=== PATIENT | male | born 1985 | race Caucasian/White ===

== ENCOUNTER 2018-02-18 22:39 | Inpatient (IN) | payer MEDICAID ==
[~2018-02-18] VITALS: Ht 175.3 cm; Wt 97.4 kg
[~2018-02-18 22:39] MED LIST: AMBIEN 5 MG TABL5 M1 PO; CIPROFLOXACIN500 M1 PO; NOHOMEMEDICATIONS; PERCOCET 5-3251 EACH PO; PRAZOSIN 1 MG CA1 M1 PO; ZYPREXA20 MG PO
[2018-02-18 22:43] VITALS: BP 129/79
[2018-02-18 22:56] LABS: URINE BILIRUBIN NEGATIVE (Negative); URINE BLOOD TRACE (Negative); URINE CLARITY CLEAR; URINE COLOR STRAW; URINE GLUCOSE-RANDOM NEGATIVE (Negative); URINE KETONES NEGATIVE (Negative); URINE LEUKOCYTES-REFLEX NEGATIVE (Negative); URINE NITRITE-REFLEX NEGATIVE (Negative); URINE PROTEIN NEGATIVE (Negative); URINE SPECIFIC GRAVITY <= 1.005 (1.005-1.030); URINE UROBILINOGEN 0.2 E.U./dl (0.2-1.0)
[2018-02-18 23:08] LABS: HEMATOCRIT 40.7 % (42.0-52.0); HEMOGLOBIN 14.1 gm/dL (14.0-18.0); MCHC 34.8 g/dL (28.0-37.0); MCV 83.4 fL (80.0-100.0); MPV 8.1 fl. (7.2-11.1); NUCLEATED RBCS 0 /100WBC; PLATELET COUNT* 257 thou/uL (150-400); RBC 4.88 mil/uL (4.50-6.00); RDW-CV 13.4 % (10.5-14.5); WBC 20.1 thou/uL (4.0-11.0)
[2018-02-18 23:30] LABS: CALCIUM 8.7 mg/dL (8.5-10.1); CREATININE 1.1 mg/dL (0.6-1.3)
[2018-02-18 23:32] LABS: ALBUMIN 3.8 g/dL (3.4-5.0); POTASSIUM 2.8 mmol/L (3.5-5.1); TOTAL BILIRUBIN 2.9 mg/dL (<0.1-1.0); TOTAL PROTEIN 7.6 g/dL (6.4-8.2)
[2018-02-18 23:40] LABS: AMP/METHAMP POSITIVE (Negative); BARBITURATES Negative (Negative); BENZODIAZEPINES Negative (Negative); COCAINE Negative (Negative); METHADONE Negative (Negative); OPIATES Negative (Negative); PCP Negative (Negative); THC Negative (Negative)
[2018-02-18 23:54] LABS: ALCOHOL < 10 mg/dL (<10); SALICYLATE < 2.8 mg/dL (2.8-20.0)
[2018-02-18 23:56] LABS: ACETAMINOPHEN < 2 ug/mL (10-30)
[2018-02-19 01:01] LABS: ABSOLUTE MONOCYTES 1.6 thou/uL (0.0-1.2); ABSOLUTE NEUTROPHILS 15.5 thou/uL (1.6-8.1); PLATELET ESTIMATE ADEQUATE
[2018-02-19 02:45] VITALS: BP 141/87
[2018-02-19 02:53] VITALS: BP 141/87
[2018-02-19 05:59] LABS: HEMATOCRIT 40.2 % (42.0-52.0); HEMOGLOBIN 13.8 gm/dL (14.0-18.0); MCH 28.7 pg (26.0-34.0); MCHC 34.3 g/dL (28.0-37.0); MCV 83.5 fL (80.0-100.0); MPV 8.2 fl. (7.2-11.1); RBC 4.81 mil/uL (4.50-6.00); RDW-CV 13.4 % (10.5-14.5); WBC 14.8 thou/uL (4.0-11.0)
[2018-02-19 06:15] LABS: ALBUMIN 3.2 g/dL (3.4-5.0); CALCIUM 8.3 mg/dL (8.5-10.1); TOTAL BILIRUBIN 2.4 mg/dL (<0.1-1.0); TOTAL PROTEIN 6.9 g/dL (6.4-8.2)
[2018-02-19 07:30] VITALS: BP 116/84
[2018-02-19 11:30] VITALS: BP 106/78
[2018-02-19 16:00] VITALS: BP 116/85
[2018-02-19 20:00] VITALS: BP 102/59
[2018-02-20] VITALS: BP 108/70
[2018-02-20 04:00] VITALS: BP 113/62
[2018-02-20 04:56] LABS: ABSOLUTE EOSINOPHILS 0.1 thou/uL (0.0-0.7); ABSOLUTE LYMPHOCYTES 3.2 thou/uL (0.8-5.3); ABSOLUTE MONOCYTES 0.8 thou/uL (0.0-1.2); ABSOLUTE NEUTROPHILS 5.7 thou/uL (1.6-8.1); BASOPHILS 0.4 %; EOSINOPHILS 0.9 %; HEMATOCRIT 37.2 % (42.0-52.0); HEMOGLOBIN 12.8 gm/dL (14.0-18.0); LYMPHOCYTES 32.3 %; MCH 29.3 pg (26.0-34.0); MCHC 34.5 g/dL (28.0-37.0); MCV 84.9 fL (80.0-100.0); MONOCYTES 7.7 %; MPV 8.6 fl. (7.2-11.1); NUCLEATED RBCS 0 /100WBC; PLATELET COUNT* 243 thou/uL (150-400); POLYS 58.7 %; RBC 4.38 mil/uL (4.50-6.00); RDW-CV 13.6 % (10.5-14.5); WBC 9.8 thou/uL (4.0-11.0)
[2018-02-20 05:22] LABS: CREATININE 0.9 mg/dL (0.6-1.3); POTASSIUM 3.7 mmol/L (3.5-5.1)
[2018-02-20 07:44] VITALS: BP 105/68
--- NOTE | 2018-02-20 15:50 | EKG ---
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
[2018-02-20 16:37] VITALS: BP 118/73
[2018-02-21 04:04] VITALS: BP 91/56
[2018-02-21 05:20] LABS: ABSOLUTE BASOPHILS 0.1 thou/uL (0.0-0.2); ABSOLUTE EOSINOPHILS 0.1 thou/uL (0.0-0.7); ABSOLUTE LYMPHOCYTES 3.4 thou/uL (0.8-5.3); ABSOLUTE MONOCYTES 0.8 thou/uL (0.0-1.2); ABSOLUTE NEUTROPHILS 5.4 thou/uL (1.6-8.1); BASOPHILS 0.6 %; EOSINOPHILS 1.3 %; HEMATOCRIT 39.3 % (42.0-52.0); HEMOGLOBIN 13.4 gm/dL (14.0-18.0); MCH 28.9 pg (26.0-34.0); MCV 85.1 fL (80.0-100.0); MPV 8.5 fl. (7.2-11.1); NUCLEATED RBCS 0 /100WBC; PLATELET COUNT* 270 thou/uL (150-400); POLYS 55.1 %; RBC 4.62 mil/uL (4.50-6.00); RDW-CV 13.3 % (10.5-14.5); WBC 9.8 thou/uL (4.0-11.0)
[2018-02-21 06:04] LABS: ALBUMIN 2.9 g/dL (3.4-5.0); CALCIUM 8.6 mg/dL (8.5-10.1); CREATININE 0.9 mg/dL (0.6-1.3); POTASSIUM 3.6 mmol/L (3.5-5.1); TOTAL BILIRUBIN 0.5 mg/dL (<0.1-1.0); TOTAL PROTEIN 5.8 g/dL (6.4-8.2)
[2018-02-21 08:00] VITALS: BP 112/81
[2018-02-21 12:00] VITALS: BP 116/52
[2018-02-21 16:00] VITALS: BP 111/70
[2018-02-21 19:13] VITALS: BP 111/70
[2018-02-21 19:20] VITALS: BP 118/79
[2018-02-22 08:30] VITALS: BP 105/68
[2018-02-22 10:31] VITALS: BP 111/70
[2018-02-22 20:15] VITALS: BP 126/83
[2018-02-22 22:28] VITALS: BP 111/70
== END 2018-02-22 23:50 | DRG 558 ==
LOC: M.ERS 22:39 → M.TBA-ER 02-19 02:00 → M.2W 02-19 02:00 → M.ORTHSURG 02-19 02:00 → M.2W 02-19 02:47 → M.ORTHSURG 02-21 17:08
PROVIDERS: Emergency Medicine; Nurse Practitioner Family; ADMIT Internal Medicine
DX: M62.82 Rhabdomyolysis (principal); R45.851 Suicidal ideations; F43.10 Post-traumatic stress disorder, unspecified; E87.6 Hypokalemia; F15.10 Other stimulant abuse, uncomplicated; F17.210 Nicotine dependence, cigarettes, uncomplicated; Z79.899 Other long term (current) drug therapy; Z88.8 Allergy status to other drugs, medicaments and biological substances

== ENCOUNTER 2018-03-03 21:19 | Emergency (ER) | payer MEDICAID ==
[~2018-03-03] VITALS: Ht 175.3 cm; Wt 97.1 kg
[2018-03-03] MEDS ORDERED: MINIPRESS5 MG (21:24)
[2018-03-03 21:44] LABS: ABSOLUTE BASOPHILS 0.1 thou/uL (0.0-0.2); ABSOLUTE EOSINOPHILS 0.1 thou/uL (0.0-0.7); ABSOLUTE LYMPHOCYTES 3.7 thou/uL (0.8-5.3); ABSOLUTE MONOCYTES 0.9 thou/uL (0.0-1.2); ABSOLUTE NEUTROPHILS 7.8 thou/uL (1.6-8.1); BASOPHILS 0.9 %; EOSINOPHILS 0.6 %; HEMATOCRIT 43.8 % (42.0-52.0); HEMOGLOBIN 15.1 gm/dL (14.0-18.0); LYMPHOCYTES 29.3 %; MCH 29.1 pg (26.0-34.0); MCHC 34.5 g/dL (28.0-37.0); MCV 84.6 fL (80.0-100.0); MONOCYTES 6.8 %; MPV 8.1 fl. (7.2-11.1); NUCLEATED RBCS 0 /100WBC; PLATELET COUNT* 321 thou/uL (150-400); POLYS 62.4 %; RBC 5.17 mil/uL (4.50-6.00); RDW-CV 13.6 % (10.5-14.5); WBC 12.6 thou/uL (4.0-11.0)
[2018-03-03 21:56] LABS: ANION GAP 10 mmol/L (7-16); BUN 9 mg/dL (7-18); CHLORIDE 104 mmol/L (98-107); CO2 26 mmol/L (21-32); CREATININE 0.9 mg/dL (0.6-1.3); GLUCOSE 94 mg/dL (70-99); POTASSIUM 3.7 mmol/L (3.5-5.1); SODIUM 140 mmol/L (136-145)
[2018-03-03 22:03] LABS: ALBUMIN 3.7 g/dL (3.4-5.0); ALKALINE PHOSPHATASE 99 U/L (46-116); SGOT 28 U/L (15-37); SGPT 56 U/L (30-65); TOTAL BILIRUBIN 0.5 mg/dL (<0.1-1.0); TOTAL PROTEIN 7.4 g/dL (6.4-8.2); TROPONIN-I LEVEL <0.06 ng/mL (<0.06)
[2018-03-03 22:39] VITALS: BP 112/64
--- NOTE | 2018-03-04 13:05 | EKG ---
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
== END 2018-03-03 22:41 | disposition home or self-care (01) ==
LOC: M.ERS 21:19
PROVIDERS: Nurse Practitioner Family
DX: R07.89 Other chest pain (principal); F43.10 Post-traumatic stress disorder, unspecified; F29 Unspecified psychosis not due to a substance or known physiological condition; F17.210 Nicotine dependence, cigarettes, uncomplicated; F12.10 Cannabis abuse, uncomplicated; Z88.8 Allergy status to other drugs, medicaments and biological substances

== ENCOUNTER 2018-05-27 11:22 | Emergency (ER) | payer MEDICAID ==
[~2018-05-27] VITALS: Ht 175.3 cm; Wt 97.5 kg
[~2018-05-27 11:22] MED LIST changes: +MINIPRESS5 MG
[2018-05-27] MEDS ORDERED: LUNESTA2 MG PO (11:30)
[2018-05-27] MEDS ORDERED: TRAMADOL 50 MG50 MG PO (11:43)
[2018-05-27] MEDS ORDERED: AMOXICILLIN 50500 MG PO (11:43)
[2018-05-27] MEDS ORDERED: AUGMENTIN 875-1 EACH PO (11:48)
[2018-05-27 11:50] VITALS: BP 114/82
== END 2018-05-27 11:55 | disposition home or self-care (01) ==
LOC: M.ERS 11:22
DX: K04.7 Periapical abscess without sinus (principal); F17.210 Nicotine dependence, cigarettes, uncomplicated; Z88.8 Allergy status to other drugs, medicaments and biological substances

== ENCOUNTER 2018-09-12 02:32 | Emergency (ER) | payer MEDICAID ==
[~2018-09-12] VITALS: Ht 175.3 cm; Wt 99.8 kg
[~2018-09-12 02:32] MED LIST changes: +AMOXICILLIN 50500 MG PO; +AUGMENTIN 875-1 EACH PO; +LUNESTA2 MG PO; +TRAMADOL 50 MG50 MG PO
[2018-09-12 03:03] LABS: ABSOLUTE BASOPHILS 0.1 thou/uL (0.0-0.2); ABSOLUTE EOSINOPHILS 0.1 thou/uL (0.0-0.7); ABSOLUTE LYMPHOCYTES 2.8 thou/uL (0.8-5.3); ABSOLUTE MONOCYTES 0.8 thou/uL (0.0-1.2); ABSOLUTE NEUTROPHILS 9.3 thou/uL (1.6-8.1); BASOPHILS 0.6 %; EOSINOPHILS 0.9 %; HEMATOCRIT 42.4 % (42.0-52.0); HEMOGLOBIN 14.5 gm/dL (14.0-18.0); LYMPHOCYTES 21.6 %; MCH 28.5 pg (26.0-34.0); MCHC 34.3 g/dL (28.0-37.0); MCV 83.2 fL (80.0-100.0); MONOCYTES 5.9 %; MPV 7.8 fl. (7.2-11.1); NUCLEATED RBCS 0 /100WBC; PLATELET COUNT* 254 thou/uL (150-400); RDW-CV 14.3 % (10.5-14.5); WBC 13.1 thou/uL (4.0-11.0)
[2018-09-12 03:14] LABS: ANION GAP 10 mmol/L (7-16); BUN 6 mg/dL (7-18); CALCIUM 8.5 mg/dL (8.5-10.1); CHLORIDE 103 mmol/L (98-107); CO2 26 mmol/L (21-32); CREATININE 1.2 mg/dL (0.6-1.3); GLUCOSE 112 mg/dL (70-99); SODIUM 139 mmol/L (136-145)
[2018-09-12 03:18] LABS: POTASSIUM 2.9 mmol/L (3.5-5.1)
[2018-09-12 03:19] LABS: APTT 27.8 Seconds (25.0-31.3); PROTIME 10.6 Seconds (9.20-11.50)
[2018-09-12 03:21] LABS: ALBUMIN 3.4 g/dL (3.4-5.0); ALKALINE PHOSPHATASE 118 U/L (46-116); LIPASE 95 U/L (73-393); SGOT 10 U/L (15-37); SGPT 27 U/L (30-65); TOTAL BILIRUBIN 0.5 mg/dL (<0.1-1.0); TOTAL PROTEIN 6.8 g/dL (6.4-8.2); TROPONIN-I LEVEL <0.06 ng/mL (<0.06)
[2018-09-12] MEDS ORDERED: ULTRAM 50MG TAB50 MG PO (03:39)
[2018-09-12] MEDS ORDERED: AMOXICILLIN500 M1 PO (03:39)
[2018-09-12 03:53] VITALS: BP 127/82
--- NOTE | 2018-09-12 11:11 | EKG ---
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 : 1985 Requested By: Brittny Calhoun Order Number: [id number] MD: Bud Gaona Measurements Intervals [place] Rate: 128 P: 45 [place]: 146 QRS: 107 QRSD: 91 T: -5 QT: 315 QTc: 460 Interpretive Statements Sinus tachycardia Right axis deviation Borderline T abnormalities, inferior leads Compared to ECG 03/03/2018 21:24:03 Right-axis deviation now present T-wave abnormality now present Sinus rhythm no longer present Electronically Signed On 09-12-2018 11:10:47 IT INFRASTRUCTURE ENGINEER by Bud Gaona [email or web address] <ELECTRONICALLY SIGNED> By: Bud Gaona MD, FAC 09/12/18 1110 [id number] [id number] Bud Gaona MD, [facility] /EPI
== END 2018-09-12 03:53 | disposition home or self-care (01) ==
LOC: M.ERS 02:32
PROVIDERS: Personal Emergency Response Attendant
DX: J18.9 Pneumonia, unspecified organism (principal); E87.6 Hypokalemia; F20.9 Schizophrenia, unspecified; F17.210 Nicotine dependence, cigarettes, uncomplicated; Z88.8 Allergy status to other drugs, medicaments and biological substances

== ENCOUNTER 2018-12-01 16:10 | Emergency (ER) | payer MEDICAID ==
[~2018-12-01] VITALS: Ht 175.3 cm; Wt 90.3 kg
[~2018-12-01 16:10] MED LIST changes: +AMOXICILLIN500 M1 PO; +ULTRAM 50MG TAB50 MG PO
[2018-12-01] MEDS ORDERED: QUETIAPINE FUM100 MG ×2 (16:37→16:38)
[2018-12-01] MEDS ORDERED: ZYPREXA 5 MG TAB5 M1 PO (16:38)
[2018-12-01] MEDS ORDERED: INVEGA6 MG PO (16:39)
[2018-12-01] MEDS ORDERED: HYDROXYZINE HCL25 M1 PO (16:39)
[2018-12-01 16:40] LABS: URINE BILIRUBIN NEGATIVE (Negative); URINE BLOOD NEGATIVE (Negative); URINE CLARITY CLEAR; URINE COLOR YELLOW; URINE GLUCOSE-RANDOM NEGATIVE (Negative); URINE KETONES NEGATIVE (Negative); URINE LEUKOCYTES-REFLEX NEGATIVE (Negative); URINE NITRITE-REFLEX NEGATIVE (Negative); URINE PROTEIN NEGATIVE (Negative); URINE SPECIFIC GRAVITY <= 1.005 (1.005-1.030); URINE UROBILINOGEN 0.2 E.U./dl (0.2-1.0)
[2018-12-01 16:41] LABS: ABSOLUTE BASOPHILS 0.1 thou/uL (0.0-0.2); ABSOLUTE LYMPHOCYTES 2.4 thou/uL (0.8-5.3); ABSOLUTE MONOCYTES 0.6 thou/uL (0.0-1.2); ABSOLUTE NEUTROPHILS 5.6 thou/uL (1.6-8.1); BASOPHILS 0.7 %; EOSINOPHILS 0.4 %; HEMOGLOBIN 15.2 gm/dL (14.0-18.0); LYMPHOCYTES 27.9 %; MCHC 34.6 g/dL (28.0-37.0); MCV 83.7 fL (80.0-100.0); MONOCYTES 6.8 %; MPV 7.9 fl. (7.2-11.1); NUCLEATED RBCS 0 /100WBC; PLATELET COUNT* 281 thou/uL (150-400); POLYS 64.2 %; RBC 5.26 mil/uL (4.50-6.00); RDW-CV 13.9 % (10.5-14.5); WBC 8.7 thou/uL (4.0-11.0)
[2018-12-01 16:50] LABS: AMP/METHAMP Negative (Negative); BARBITURATES Negative (Negative); BENZODIAZEPINES Negative (Negative); COCAINE Negative (Negative); METHADONE Negative (Negative); OPIATES Negative (Negative); PCP Negative (Negative); THC Negative (Negative)
[2018-12-01 16:55] LABS: ALBUMIN 4.1 g/dL (3.4-5.0); CALCIUM 9.2 mg/dL (8.5-10.1); CREATININE 1.3 mg/dL (0.6-1.3); POTASSIUM 3.6 mmol/L (3.5-5.1); TOTAL BILIRUBIN 0.8 mg/dL (<0.1-1.0); TOTAL PROTEIN 7.7 g/dL (6.4-8.2)
[2018-12-01 17:08] LABS: ACETAMINOPHEN < 2 ug/mL (10-30); ALCOHOL < 10 mg/dL (<10); SALICYLATE < 2.8 mg/dL (2.8-20.0)
[2018-12-02 17:56] VITALS: BP 114/77
== END 2018-12-02 17:56 | disposition short-term general hospital (02) ==
LOC: M.ERS 16:10
PROVIDERS: Family Medicine
DX: R45.851 Suicidal ideations (principal); F17.210 Nicotine dependence, cigarettes, uncomplicated; F20.9 Schizophrenia, unspecified; Z88.8 Allergy status to other drugs, medicaments and biological substances

== ENCOUNTER 2018-12-15 17:40 | Emergency (ER) | payer MEDICAID ==
[~2018-12-15] VITALS: Ht 175.3 cm; Wt 90.3 kg
[~2018-12-15 17:40] MED LIST changes: +HYDROXYZINE HCL25 M1 PO; +INVEGA6 MG PO; +QUETIAPINE FUM100 MG; +ZYPREXA 5 MG TAB5 M1 PO
[2018-12-15] MEDS ORDERED: VITAMIN D2400 UNIT PO (18:10)
[2018-12-15] MEDS ORDERED: TOPROL XL25 MG PO (18:10)
[2018-12-15] MEDS ORDERED: HYDROCHLOROTHIA25 M2 PO (18:11)
[2018-12-15] MEDS ORDERED: PROZAC10 MG PO (18:12)
[2018-12-15 18:29] LABS: URINE BILIRUBIN NEGATIVE (Negative); URINE BLOOD NEGATIVE (Negative); URINE CLARITY CLEAR; URINE COLOR YELLOW; URINE GLUCOSE-RANDOM NEGATIVE (Negative); URINE KETONES TRACE (Negative); URINE LEUKOCYTES-REFLEX NEGATIVE (Negative); URINE NITRITE-REFLEX NEGATIVE (Negative); URINE PROTEIN NEGATIVE (Negative); URINE SPECIFIC GRAVITY >= 1.030 (1.005-1.030); URINE UROBILINOGEN 0.2 E.U./dl (0.2-1.0)
[2018-12-15 18:50] LABS: AMP/METHAMP Negative (Negative); BARBITURATES Negative (Negative); BENZODIAZEPINES Negative (Negative); COCAINE Negative (Negative); METHADONE Negative (Negative); OPIATES Negative (Negative); PCP Negative (Negative); THC Negative (Negative)
[2018-12-15 19:29] LABS: ABSOLUTE BASOPHILS 0.1 thou/uL (0.0-0.2); ABSOLUTE EOSINOPHILS 0.1 thou/uL (0.0-0.7); ABSOLUTE LYMPHOCYTES 2.1 thou/uL (0.8-5.3); ABSOLUTE MONOCYTES 0.6 thou/uL (0.0-1.2); ABSOLUTE NEUTROPHILS 7.5 thou/uL (1.6-8.1); BASOPHILS 0.6 %; HEMATOCRIT 41.6 % (42.0-52.0); HEMOGLOBIN 14.4 gm/dL (14.0-18.0); LYMPHOCYTES 20.3 %; MCH 28.6 pg (26.0-34.0); MCHC 34.7 g/dL (28.0-37.0); MCV 82.2 fL (80.0-100.0); MONOCYTES 6.2 %; MPV 7.6 fl. (7.2-11.1); NUCLEATED RBCS 0 /100WBC; PLATELET COUNT* 309 thou/uL (150-400); POLYS 71.9 %; RBC 5.05 mil/uL (4.50-6.00); RDW-CV 13.9 % (10.5-14.5); WBC 10.5 thou/uL (4.0-11.0)
[2018-12-15 19:39] LABS: CALCIUM 9.2 mg/dL (8.5-10.1); POTASSIUM 3.3 mmol/L (3.5-5.1); TOTAL BILIRUBIN 1.2 mg/dL (<0.1-1.0); TOTAL PROTEIN 7.7 g/dL (6.4-8.2)
[2018-12-15 19:45] LABS: SALICYLATE < 2.8 mg/dL (2.8-20.0)
[2018-12-15 19:46] LABS: ACETAMINOPHEN < 2 ug/mL (10-30); ALCOHOL < 10 mg/dL (<10)
[2018-12-15 22:24] VITALS: BP 118/87
== END 2018-12-15 22:24 | disposition home or self-care (01) ==
LOC: M.ERS 17:40
PROVIDERS: Emergency Medicine Emergency Medical Services
DX: F20.9 Schizophrenia, unspecified (principal); F29 Unspecified psychosis not due to a substance or known physiological condition; F17.210 Nicotine dependence, cigarettes, uncomplicated